=== PATIENT | male | born 1960 ===

== ENCOUNTER 2017-11-18 10:43 | Emergency (ER) | payer OTHER ==
[2017-11-18 10:51] VITALS: BP 141/94
[2017-11-18] MEDS ORDERED: Lidocaine 1% MPF wEPI 200,000* 30 ML SDV INJ ONE (10:57)
--- NOTE | 2017-11-18 11:01 | UC ---
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 Laceration occurred after he caught a metal band holding roof trusses together. The band came back and lacerated the arm. He is on aspirin, Plavix for prior cardiac disease/stenting. His tetanus is up-to- date having had one 4 years ago. He was on successful in getting the bleeding to stop. It is slowed now. He is right-handed. There is no limitation in his strength or range of motion of the arm. He feels no numbness or weakness. He denies other injury. - History Of Current Complaint Chief Complaint: UCLaceration Stated Complaint: RIGHT FOREARM LACERATION Time Seen by Provider: 11/18/17 10:55 Hx Obtained From: Patient Pain Intensity: 0 - Allergies/Home Medications Allergies/Adverse Reactions: Allergies Allergy/AdvReac Type Severity Reaction Status Date / Time No Known Allergies Allergy Verified 11/18/17 10:51 Home Medications: Home Medications Aspirin 81 mg CHEW TAB* [Aspirin Low Dose TAB*] 81 mg PO DAILY 11/18/17 [ History Confirmed 11/18/17] Atorvastatin* [Lipitor*] 10 mg PO BEDTIME 11/18/17 [History Confirmed 11/18/17] Clopidogrel TAB* [Plavix TAB*] 75 mg PO DAILY 11/18/17 [History Confirmed ] Metoprolol Kam/Hydrochlorothiaz [Metoprolol ER-Hctz 50-12.5 mg] 11/18/17 [ History] Simvastatin TAB(NF) [Zocor(NF)] 40 mg PO 1700 11/18/17 [History Confirmed ] Spironolactone TAB* [Aldactone TAB*] 25 mg PO DAILY 11/18/17 [History Confirmed 11/18/17] PMH/Surg Hx/FS Hx/Imm Hx Previously Healthy: No - cardiac disease Cardiovascular History: Cardiac Disease, Hypertension Respiratory History: COPD - Surgical History Surgical History: Yes Surgery Procedure, Year, and Place: Cardiac stent, 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 - Family History Known Family History: Positive: Hypertension - Social History Occupation: Employed Full-time Alcohol Use: Occasionally Substance Use Type: None Smoking Status (MU): Heavy Every Day Tobacco Smoker Type: Cigarettes - Immunization History Hx Tetanus, Diphtheria Vaccination: Yes Vaccination Up to Date: Yes Review of Systems Constitutional: Negative Skin: Other - Forearm laceration Eyes: Negative Respiratory: Negative Motor: Other - Denies weakness Neurovascular: Other - Denies numbness Musculoskeletal: Other: - Denies decreased range of motion or strength Neurological: Negative All Other Systems Reviewed And Are Negative: Yes Physical Exam Triage Information Reviewed: Yes Appearance: Well-Appearing, No Pain Distress Vital Signs: Initial Vital Signs Temp 98.6 F 11/18/17 10:46 Pulse 107 11/18/17 10:46 Resp 18 11/18/17 10:46 BP 141/94 11/18/17 10:46 Pulse Ox 98 11/18/17 10:46 Vital Signs Reviewed: Yes ENT Exam: Normal Neck exam: Normal Respiratory: Positive: Chest non-tender, Lungs clear, Normal breath sounds Cardiovascular: Positive: RRR Musculoskeletal: Positive: Strength Intact, ROM Intact, No Edema, Other: - Normal tendon function in the right hand and wrist Neurological: Positive: Alert, Muscle Tone Normal, Other: - No loss of sensation right hand or forearm Skin Exam: Other - 2.5cm Linear laceration of the volar right forearm. No gross contamination. Actively oozing red blood. Laceration Repair - Laceration Repair 1 Procedure Summary: irrigated under the sink -- cleaned with soap and water. Dressed with bacitracin and a pressure dressing. Description: Linear Laceration Size After Repair: Length (cm) - 2.5, Width (mm) - 2 Contamination/FB Removal: none Modified For Repair: No Type Injection: Local Anesthesia Used: 1.0% Lido Additive Used (in ml): Epi Cleansing Completed Via Routine Prep: Yes Closure Material: [place] - 4 Closure Method: Single Layer Laceration Course/Dx - Course/Dx Course Of Treatment: Simple laceration repair with wendy and a pressure dressing applied given he is on aspirin, Plavix. Tetanus is up-to-date. [place] out in 10 days. - Differential Dx - Laceration/Wound Provider Diagnoses: 1. Right simple forearm laceration, 2.5 cm. 2. Bleeding, Adverse effect of antiplatelet medication Discharge - Sign-Out/Discharge Documenting (check all that apply): Patient Departure - Discharge Plan Condition: Improved Disposition: HOME Patient Education Materials: Laceration (ED) Additional Instructions: Keep clean and dry. Dress with bacitracin ointment 2-3 times daily. Return with concern for infection, persistent bleeding, worse, new symptoms or other concerns. Return for staple removal in 10 days. - Billing Disposition and Condition Condition: IMPROVED Disposition: Home
== END 2017-11-18 11:40 | disposition home or self-care (01) ==
LOC: UCCORT 10:43
DX: S51.811A Laceration without foreign body of right forearm, initial encounter (principal); W26.8XXA Contact with other sharp object(s), not elsewhere classified, initial encounter; Y93.89 Activity, other specified; Y92.61 Building [any] under construction as the place of occurrence of the external cause; R23.3 Spontaneous ecchymoses; D68.32 Hemorrhagic disorder due to extrinsic circulating anticoagulants; T45.525A Adverse effect of antithrombotic drugs, initial encounter; Y99.0 Civilian activity done for income or pay; Z79.01 Long term (current) use of anticoagulants; I51.9 Heart disease, unspecified; Z95.5 Presence of coronary angioplasty implant and graft; I10 Essential (primary) hypertension; F17.210 Nicotine dependence, cigarettes, uncomplicated
CPT/HCPCS: 12001; 99201; G0463; J2001

== ENCOUNTER 2017-11-27 12:36 | Emergency (ER) | payer OTHER ==
[2017-11-27 13:16] VITALS: BP 127/79
--- NOTE | 2017-11-27 13:34 | UC ---
Skin Complaint HPI - HPI Summary HPI Summary: pt had wendy placed in R FA on 11/18/17. returns for removal. denies FB sensation, pain, drainage and erythema. - History of Current Complaint Chief Complaint: UCSkin Time Seen by Provider: 11/27/17 13:25 Stated Complaint: STITCHES REMOVAL W/C Hx Obtained From: Patient Pain Intensity: 0 Aggravating Factor(s): Nothing Associated Signs & Symptoms: Negative: Rash, Tenderness, Red Streaks - Allergy/Home Medications Allergies/Adverse Reactions: Allergies Allergy/AdvReac Type Severity Reaction Status Date / Time No Known Allergies Allergy Verified 11/27/17 13:16 Review of Systems Constitutional: Negative Skin: Other - wendy R FA Eyes: Negative ENT: Negative Respiratory: Negative Cardiovascular: Negative Gastrointestinal: Negative Genitourinary: Negative Motor: Negative Neurovascular: Negative Musculoskeletal: Negative Neurological: Negative Psychological: Negative Is Patient Immunocompromised?: No All Other Systems Reviewed And Are Negative: Yes PMH/Surg Hx/FS Hx/Imm Hx Endocrine History: Dyslipidemia Cardiovascular History: Hypertension, Myocardial Infarction - Surgical History Surgical History: Yes Surgery Procedure, Year, and Place: Cardiac stent, 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 - Family History Known Family History: Positive: Hypertension - Social History Occupation: Employed Full-time Lives: With Family Alcohol Use: Occasionally Substance Use Type: None Smoking Status (MU): Heavy Every Day Tobacco Smoker Type: Cigarettes - Immunization History Hx Tetanus, Diphtheria Vaccination: Yes Vaccination Up to Date: Yes Physical Exam Triage Information Reviewed: Yes Appearance: Well-Appearing Vital Signs: Initial Vital Signs Temp 99.3 F 11/27/17 13:09 Pulse 88 11/27/17 13:09 Resp 18 11/27/17 13:09 BP 127/79 11/27/17 13:09 Pulse Ox 98 11/27/17 13:09 Vital Signs Reviewed: Yes Eyes: Positive: Conjunctiva Clear ENT: Positive: Normal ENT inspection Neck: Positive: Supple, Nontender Respiratory: Positive: Lungs clear Cardiovascular: Positive: RRR, No Murmur Abdomen Description: Positive: Nontender, No Organomegaly, Soft Bowel Sounds: Positive: Present Musculoskeletal: Positive: ROM Intact Neurological: Positive: Alert Psychological: Positive: Age Appropriate Behavior Skin Exam: Normal, Other - 4 staple to R volar FA. Area slightly pink c/w healing but not red, warm, swollen or tender. Arm has full s/v/m function. Course/Dx - Course Course Of Treatment: PROCEDURE: WENDY REMOVED. SKIN EDGES MILDLY INVERTED AND SKIN EDGES OPENED SLIGHTLY THUS MASTISOL THEN STERI STRIPS APPLIED. - Diagnoses Provider Diagnoses: STAPLE REMOVAL R FOREARM Discharge - Sign-Out/Discharge Documenting (check all that apply): Patient Departure All imaging exams completed and their final reports reviewed: No Studies - Discharge Plan Condition: Stable Disposition: HOME Patient Education Materials: Staple Care (ED), Steristrips (ED) Referrals: Steven Gutierrez DO [Primary Care Provider] - If Needed - Billing Disposition and Condition Condition: STABLE Disposition: Home
== END 2017-11-27 13:43 | disposition home or self-care (01) ==
LOC: EDBD → UCCORT 12:36
DX: Z48.02 Encounter for removal of sutures (principal); F17.210 Nicotine dependence, cigarettes, uncomplicated